=== PATIENT | female | born 1990 | race Caucasian/White ===

== ENCOUNTER 2019-01-26 05:19 | Inpatient (IN) | payer MEDICAID ==
[~2019-01-26] VITALS: Ht 162.6 cm; Wt 89.7 kg
[2019-01-26 05:30] VITALS: Ht 162.6 cm; Wt 89.7 kg
[2019-01-26] MEDS ORDERED: PREN-99 PO (05:32)
[2019-01-26 05:41] VITALS: BP 103/61; PULSE 76; RESP 18
[2019-01-26] MEDS ORDERED: OXYTOCIN 30 UNITS/LR 500 ML IV PRN ×2 (06:00→09:00)
[2019-01-26] MEDS ORDERED: METHYLERGONOVINE 0.2 MG INJ IM PRN ×2 (06:00→09:00)
[2019-01-26] MEDS ORDERED: CEFAZOLIN 2 GM/50 ML (PMX) 50 ML IVPB SCH (06:00)
[2019-01-26] MEDS ORDERED: CARBOPROST 250 MCG INJ IM PRN ×2 (06:00→09:00)
[2019-01-26] MEDS ORDERED: MISOPROSTOL 200 MCG TAB PR PRN ×2 (06:00→09:00)
[2019-01-26] MEDS ORDERED: OXYTOCIN 30 UNITS/LR 500 ML IV SCH ×2 (06:00→08:50)
[2019-01-26] MEDS: LACTATED RINGER'S 1,000 ML IV SCH ×3 (06:03→23:09)
--- NOTE | 2019-01-26 07:18 | PREAC ---
Date/Time of Note Date/Time of Note DATE: 01/26/19 TIME: 07:17 Anesthesia Eval and Record Evaluation Time Pre-Procedure Interview DATE: 01/26/19 TIME: 07:17 Age 29 Sex female NPO: 8 hrs Preoperative diagnosis iup at 39 weeks Planned procedure repeat c section Past Medical History Past Medical History: Includes GI: Obesity Heme: Anemia Surgery & Anesthesia Issues No known issue Meds Anticoagulation: No Beta Erika within 24 hr: No Reason Beta Erika not given: Pt. not on B-Erika Reported Medications Vit #76/Iron,Carb/FA (Pnv 29-1 Tablet) 1 Each Tablet, 1 EACH PO, TAB 01/26/19 Current Medications Lactated Ringer's 1,000 ml @ 125 mls/hr Q8H IV Last administered on 01/26/19at 06:03; Admin Dose 125 MLS/HR; Start 01/26/19 at 05:33 Cefazolin Sodium/ Dextrose 50 ml @ 100 mls/hr ONCE IVPB ; Start 01/26/19 at 06:00 Oxytocin/Lactated Ringer's 500 ml @ 125 mls/hr POST IV ; Start 01/26/19 at 06:00 Oxytocin/Lactated Ringer's 500 ml @ 0 mls/hr ONCE PRN IV .VAGINAL BLEEDING; Start 01/26/19 at 06:00 Methylergonovine Maleate (Methergine) 0.2 mg ONCE PRN IM .VAGINAL BLEEDING; Start 01/26/19 at 06:00 Carboprost Tromethamine (Hemabate) 250 mcg ONCE PRN IM .VAGINAL BLEEDING; Start 01/26/19 at 06:00 Misoprostol (Cytotec) 1,000 mcg ONCE PRN ID .VAGINAL BLEEDING; Start 01/26/19 at 06:00 Meds reviewed: Yes Allergies Coded Allergies: No Known Allergy (Unverified , 01/26/19) Allergies Reviewed: Yes Labs/Studies Labs Reviewed: Reviewed by anesthesiologist Result Diagram: 01/26/19 0550 Laboratory Tests 01/26/19 05:50 Blood Bank Test 01/26/19 05:50 Blood Product Summary Counts Blood Type A POSITIVE Rh Immune Globulin Candidate NO test: Positive Pre-procedure Exam Last vitals Vital Signs Date Temp Pulse Resp B/P (MAP) Pulse Ox O2 O2 Flow FiO2 Time Delivery Rate 7/10/19 98.4 76 18 103/61 Room Air 05:41 (75) Airway: Adequate mouth opening, Adequate thyromental dist Mallampati: Mallampati II Teeth: Normal Lung: Normal Heart: Normal ASA Physical Status ASA physical status: 2 Emergency: None Planned Anesthetic Neuraxial: Spinal Planned Pain Management Sub-arachniod narcotics, Parenteral pain med Pre-operative Attestations Prior to commencing anesthesia and surgery, the patient was re-evaluated, there was verification of: *The patient's identity *The results of appropriate recent lab work and preoperative vital signs *The above evaluation not changing prior to induction *Anesthetic plan, risk benefits, alternative and complications discussed with patient/family; questions answered; patient/family understands, accepts and wishes to proceed. CHANTAL SALAS Jan 26, 2019 07:18
--- NOTE | 2019-01-26 07:21 | PREOPHP ---
DATE OF ADMISSION: 01/26/2019 HISTORY OF PRESENT ILLNESS: Ms. Nia Lawson is a 28-year-old 4, para 3, EDC 019, intrauterine at 37 weeks and 1 day gestational age, was admitted today for elective re peat delivery. She was recommended by perinatologist and her primary OB physician, Dr. Baeza at, to be delivered at approximately 37 weeks gestational age secondary to history of uterine open wi ndow in her last and possibly with this . She denies any contractions, vaginal bl eeding, or discharge. Her care took place with Dr. Linares. PAST MEDICAL HISTORY: None. MEDICATIONS: vitamins. PAST SURGICAL HISTORY: Times 3 previous C-sections, x1 laparoscopic cholecystectomy. GYNECOLOGIC HISTORY: Twelve, regular, 3 to 4 days. Denies any sexually transmitted infections. Sex ually active with 1 partner. SOCIAL HISTORY: Denies any smoking, drugs or alcohol. FAMILY HISTORY: None. REVIEW OF SYSTEMS: All within normal except history of present illness. PHYSICAL EXAMINATION: HEENT: Within normal. LUNGS: CTA bilateral. CARDIOVASCULAR: S1, S2, regular rhythm. ABDOMEN: Gravid, nontender. Negative CVA bilateral. EXTREMITIES: Negative edema. No calf tenderness. PELVIC: Vaginal exam deferred. heart tracing category 1. ASSESSMENT: Intrauterine at 37 weeks and 1 day gestational age x3 previous , igor res elective repeat delivery. PLAN: Consent for repeat delivery. Risks, benefits and alternatives explained. All questi ons were answered. Dictated By: CARLIN LOCK/SAHIL Conf#: [id number] DID#: [id number]
[2019-01-26] MEDS ORDERED: FENTAnyl 50 MCG/ML VIAL ONE (07:31)
[2019-01-26] MEDS ORDERED: morphine SULFATE/PF (10 MG/10 ML) INJ ONE (07:31)
[2019-01-26] MEDS ORDERED: ONDANSETRON 4 MG INJ ONE (07:39)
[2019-01-26] MEDS ORDERED: DEXAMETHASONE 4 MG/ML 1 ML INJ ONE (07:39)
[2019-01-26] MEDS ORDERED: PHENYLephrine (100 MCG/ML) 10ML SYG ONE (08:10)
[2019-01-26] MEDS ORDERED: ZOLPIDEM 5 MG TAB PO PRN (08:30)
[2019-01-26] MEDS ORDERED: NALOXONE (0.4 MG/ML) INJ IV PRN (08:30)
[2019-01-26] MEDS ORDERED: HYDROmorphONE 0.5 MG/0.5 ML SYG IV PRN ×2 (08:30)
[2019-01-26] MEDS ORDERED: ONDANSETRON 4 MG INJ IV PRN (08:30)
[2019-01-26] MEDS ORDERED: DIPHENHYDRAMINE 50 MG INJ IV PRN (08:30)
--- NOTE | 2019-01-26 08:50 | OPPN ---
Date/Time of Note Date/Time of Note DATE: 01/26/19 TIME: 08:47 Operative Report Planned Procedure Procedure date Jan 26, 2019 Procedure(s) repeat low transverse CD Performed by see signature line Repair Coil Winder: LION [employer] 2nd Repair Coil Winder none Pre-procedure diagnosis iup at 37 wks ga, previous CD X 3, with suspected uterine window [id number] Anesthesia Type: Srdxx5w spinal Post-Procedure Post-procedure diagnosis same Findings a viable male, 9/9, weight 7lb 10 oz. positive 6 cm window uterine lower anterior, normal tubes and ovaries Estimated Blood Loss: 500 - 600 mls (500) Specimen(s) none Grafts/Implant(s) none Complication(s) none CARLIN BECK MD Jan 26, 2019 08:50
[2019-01-26] MEDS ORDERED: NACL 0.9% 3 ML SYG IV SCH (09:00)
[2019-01-26] MEDS ORDERED: OXYCODONE/ACETAMINOPHEN (5/325) TAB PO PRN ×2 (09:00)
[2019-01-26] MEDS: KETOROLAC 30 MG INJ IV PRN (10:53)
[2019-01-26 12:45] VITALS: BP 120/60; PULSE 67; RESP 18
[2019-01-26 13:00] VITALS: BP 116/72; PULSE 71; RESP 18
[2019-01-26] MEDS: LANOLIN HPA 1 PKT TOP PRN (13:13)
[2019-01-26 14:00] VITALS: BP 115/71; PULSE 79; RESP 18
[2019-01-26] MEDS: IBUPROFEN 800 MG TAB PO SCH ×2 (14:00→22:00)
--- NOTE | 2019-01-26 14:57 | OPR ---
DATE OF OPERATION: 01/26/2019 PREOPERATIVE DIAGNOSES: Intrauterine at 37 weeks gestational age, previous x3, s uspected uterine open window, desires elective repeat delivery. Declined vaginal afte r . POSTOPERATIVE DIAGNOSES: Intrauterine at 37 weeks gestational age, previous x3, suspected uterine open window, desires elective repeat delivery. Declined vaginal aft er . OPERATION PERFORMED: Repeat low transverse delivery. SURGEON: Moose Landaverde MD BUSINESS MANAGEMENT MANAGER: Cruz Ching MD ANESTHESIA: Spinal. COMPLICATIONS: None. ESTIMATED BLOOD LOSS: 500 mL. FINDINGS: A viable male, 9 and 9 respectively at 1 and 5 minutes, weight 7 pounds 10 ounces. A 6 cm open a window at the lower uterine segment of the uterus, normal tubes and ovaries. DESCRIPTION OF PROCEDURE: After explaining risks, benefits and alternatives, the patient and consent signed in chart, the patient was taken to the operating room where spinal anesthesia was found to be adequate. She was then prepared and draped in normal sterile fashion in dorsal supine position with a leftward tilt. Pfannenstiel skin incision was then made with a scalpel and carried to the underly ing fascia. The fascia was incised in midline and incision was extended laterally with Gamino scissors . The superior aspect of the fascial incision was grasped with curved clamps, elevated and the under lying rectus muscles dissected off bluntly. Attention was then turned to the inferior aspect incisio n which in similar fashion was grasped, tented up with curved clamps and the rectus muscles dissected off bluntly. The rectus muscle was in midline, peritoneum identified, tented up, and go ply with Metzenbaum scissors. The peritoneal incision was extended superiorly with good visualizatio n of the bladder. The bladder blade was then inserted and the lower uterine segment incised in trans verse fashion with a scalpel. The uterine incision was extended laterally. The bladder blade was re moved and the infant's head delivered atraumatically. The nose and mouth were suctioned and the cord was clamped and cut. The was handed off to awaiting bdr. The placenta was then rem abdi. The uterus was exteriorized and cleared of all clots and debris. The uterine incision was rep aired with 1-0 chromic in a running locked fashion. A second layer of same suture was used for imbri cation obtaining excellent hemostasis. The uterus was returned to the abdomen. The gutters were norbert ared of all clots. Interceed was applied to the anterior uterus. The peritoneum and rectus abdomini s muscles reapproximated with 2-0 Vicryl in an interrupted fashion. The fascia was reapproximated wi th 0 Vicryl in a running fashion. The subcutaneous tissue was reapproximated with 2-0 plain gut in a running fashion. The skin was closed with absorbable nessa. The patient tolerated procedure well . Sponge, lap, needle counts correct. The patient was taken to recovery room in stable condition. Dictated By: MOOSE LOCK/SAHIL Conf#: [id number] DID#: [id number]
[2019-01-26 15:03] VITALS: BP 114/70; PULSE 60; RESP 18
[2019-01-26] MEDS: CEFAZOLIN 2 GM/50 ML (PMX) 50 ML IVPB SCH ×2 (16:15→23:35)
--- NOTE | 2019-01-26 19:09 | PAC ---
Date/Time of Note Date/Time of Note DATE: 01/26/19 TIME: 19:09 Post-Anesthesia Notes Post-Anesthesia Note Last documented vital signs Vital Signs Date Temp Pulse Resp B/P (MAP) Pulse Ox O2 O2 Flow FiO2 Time Delivery Rate 01/26/19 98.5 60 18 114/70 99 1700 (85) 01/26/19 Room Air 14:00 Activity: WNL Respiratory function: WNL Cardiovascular function: WNL Mental status: Baseline Pain reasonably controlled: Yes Hydration appropriate: Yes Nausea/Vomiting absent: Yes CHANTAL SALAS Jan 26, 2019 19:09
[2019-01-26 20:00] VITALS: BP 101/62; PULSE 66; RESP 20
[2019-01-27] VITALS: BP 104/71; PULSE 64; RESP 16
[2019-01-27 04:00] VITALS: BP 105/60; PULSE 60; RESP 18
[2019-01-27] MEDS: IBUPROFEN 800 MG TAB PO SCH ×3 (06:00→20:44)
[2019-01-27] MEDS: LACTATED RINGER'S 1,000 ML IV SCH ×2 (06:00→14:00)
[2019-01-27] MEDS: CEFAZOLIN 2 GM/50 ML (PMX) 50 ML IVPB SCH (06:06)
[2019-01-27] MEDS: KETOROLAC 30 MG INJ IV PRN ×2 (06:07→06:56)
[2019-01-27 08:00] VITALS: BP 85/50; PULSE 66; RESP 18
--- NOTE | 2019-01-27 12:37 | QN ---
Documentation Comment progress note pod 1 patient seen and evaluated no compliants no n/v, sob, visual changes, epigastric pain, palpitation vs stable afebrile ab dressing clean/dry no distention extremity no edema no calf tenderness a/ sp cd pod 1 stable afebrile p/ iron supplement repeat cbc tomorrow CARLIN BECK MD Jan 27, 2019 12:37
[2019-01-27 16:03] VITALS: BP 102/58; PULSE 77; RESP 16
[2019-01-27 20:30] VITALS: BP 107/54; PULSE 77; RESP 16
[2019-01-27] MEDS: LANOLIN HPA 1 PKT TOP PRN (20:41)
[2019-01-27] MEDS: FERROUS SULFATE (EC) 325 MG TAB PO SCH (20:42)
[2019-01-28 04:35] VITALS: BP 106/60; PULSE 72; RESP 19
[2019-01-28] MEDS: IBUPROFEN 800 MG TAB PO SCH ×3 (06:01→22:00)
[2019-01-28 08:00] VITALS: BP 115/74; PULSE 76; RESP 18
[2019-01-28] MEDS: FERROUS SULFATE (EC) 325 MG TAB PO SCH ×2 (09:49→21:26)
--- NOTE | 2019-01-28 11:50 | QN ---
Documentation Comment POD#2 is stable afebrile No VB +Flatus Adequate urine VS stable Gen NAD Abd soft NT ND Incision intact Genitalia No blood at perineum --->Ambulation --->Discharge plan for tomorrow UMER HAGER M.D. Jan 28, 2019 11:50
[2019-01-28 16:00] VITALS: BP 102/76; PULSE 73; RESP 16
[2019-01-28 19:30] VITALS: BP 115/74; PULSE 66; RESP 18
[2019-01-28] MEDS: LANOLIN HPA 1 PKT TOP PRN (21:26)
[2019-01-29 04:38] VITALS: BP 113/78; PULSE 70; RESP 18
[2019-01-29] MEDS: IBUPROFEN 800 MG TAB PO SCH ×2 (06:08→13:36)
[2019-01-29 08:00] VITALS: BP 113/67; PULSE 70; RESP 18
[2019-01-29] MEDS: FERROUS SULFATE (EC) 325 MG TAB PO SCH (08:43)
--- NOTE | 2019-01-29 12:06 | DS ---
Date/Time of Note Date/Time of Note DATE: 01/29/19 TIME: 12:04 Obstetrical Discharge Record Final Diagnosis Final Diagnosis: Term delivered Section Section: Repeat Complications Augmentation: No Induction: No Rupture of Membranes: No Condition on Discharge Physical Assessment Last Vitals: T=98.4 BP 113/67 Voiding: Yes Bowel Movement: Yes Breast: Filling Fundus: Firm Abdomen and Incision: C/D/I. Abdomen soft. Uterus firm. Calf Tenderness: No Patient Condition: Good DEANGELO FIELDS MD Jan 29, 2019 12:06
[2019-01-29] MEDS ORDERED: IBUP800T48 PO (12:07)
--- NOTE | 2019-01-29 12:07 | PD.PPDC ---
FILL TECHNICIAN Discharge Instruction Condition [id number] Patient Condition: Typfm5a Good Diet Difch8Cb Diet: Wdcfw4r Resume Regular Diet Activity/Restrictions Qlgkw6If Activity: Kggzw2x Bedrest May be up to bathroom May be up for meals May Shower Yusyf2Hz Restrictions: Bvxko5e No Exercising No Lifting No Driving Minimize Walking Minimize Stair-climbing No Sexual Activity Nothing in the Vagina No Lena No Tampons, douche Wound/Drain Care Instructions [id number] Wound/Drain Care Ybfvx6y Remove Steri Strips in 2 Instructions: weeks Keep clean and dry Follow-up Follow-up with Physician: 2, Week/Weeks Return to clinic for [id number] TOWN ADMINISTRATOR Instructions: Ebrxx0x Fever greater than 101 Chills Worsening abdominal pain Excessive Vaginal Bleeding [id number] OB Instructions: Gwses0a Breast Tenderness Depression Adkwi0An Surgical Instructions: Fqjau1r Incisional Drainage Incisional Redness DEANGELO FIELDS MD Jan 29, 2019 12:07
[2019-01-29] MEDS ORDERED: MEASLES,MUMPS,RUBELLA VACCINE INJ SC* ONE (12:30)
--- NOTE | 2019-01-30 15:23 | DELSUM ---
Delivery Summary A-C Datetime Report Generated by CPN: 01/30/2019 15:22 DELIVERY PERSONNEL Pt Escort: Octavio, Fany MATERNAL INFORMATION Delivery Anesthesia: Spinal Medications in Delivery: SEE ANESTHESIA RECORD Delivery QBL (ml): 500 Placenta Cultured: No Maternal Complications: None Other Maternal Complications: 37.1 Weeks (hx of window on previous c/s) LABOR SUMMARY EDC: 02/15/2019 00:00 No. Babies in Womb: 1 Attempted: No Labor Anesthesia: None LABOR INFORMATION Reason for Induction: Not Applicable Group B Beta Strep: Positive Antibiotics # of Doses: ANCEF 2G X1 Antibiotics Time of Last Dose: 01/26/2019 08:00 Steroids Given: None Reason Steroids Not Administered: Not Applicable MEMBRANES Membranes Rupture Method: Artificial Rupture of Membranes: 01/26/2019 08:20 Length of Rupture (hr): 0.00 Amniotic Fluid Color: Clear Amniotic Fluid Amount: Moderate Amniotic Fluid Odor: None STAGES OF LABOR Stage 3 hr: 0 Stage 3 min: 2 CSECTION DELIVERY Primary Indication: Repeat Elective Secondary Indication: N/A CSection Urgency: Elective CSection Incidence: Repeat Labor: No Labor Elective: Elective CSection Incision: Lower Uterine Transverse BABY A INFORMATION Infant Delivery Date/Time: 01/26/2019 08:20 Method of Delivery: Born in Route : No : N/A Forceps: N/A Vacuum Extraction: N/A Shoulder Dystocia : N/A SHOULDER DYSTOCIA BABY A Infant Delivery Date/Time: 01/26/2019 08:20 PRESENTATION/POSITION BABY A Presentation: Cephalic Cephalic Presentation: Vertex Vertex Position: Left Occipital Posterior Breech Presentation: N/A PLACENTA INFORMATION BABY A Placenta Delivery Time : 01/26/2019 08:22 Placenta Method of Delivery: Manual Removal Placenta Status: Delivered SCORES BABY A Heart Rate 1 min: >100 bpm Resp Effort 1 min: Good Cry Reflex Irritability 1 min: Cough/Sneeze/Pulls Away Muscle Tone 1 min: Active Motion Color 1 min: Body [place], Extremit Blue Resuscitation Effort 1 min: Tactile Stimulation SCORE 1 MIN: 9 Heart Rate 5 min: >100 bpm Resp Effort 5 min: Good Cry Reflex Irritability 5 min: Cough/Sneeze/Pulls Away Muscle Tone 5 min: Active Motion Color 5 min: Body [place], Extremit Blue Resuscitation Effort 5 min: Tactile Stimulation SCORE 5 MIN: 9 INFANT INFORMATION BABY A Gestational Age at Delivery: 37.1 Gestational Status: Early Term- 37- 38.6 Weeks Outcome : Liveborn, with signs of life Condition : Stable Infant Sex: Male IDENTIFICATION/MEDS BABY A ID Band Number: [id number] ID Band Location: Right Leg; Left Arm Sensor Applied: Yes Sensor Number: [id number] Sensor Location : Cord Clamp Vitamin K Given : Not Given Erythromycin Given: Not Given WEIGHT/LENGTH BABY A Birthweight (gm): 3460 Infant Weight (lb): 7 Weight (oz): 10 Infant Length (in): 19.50 Length (cm): 49.53 CORD INFORMATION BABY A No. Cord Vessels: 3 Nuchal Cord : N/A Cord Blood Taken: Yes Banking/Donate Info: N/A Infant Suction: Mouth; Nose ASSESSMENT BABY A Infant Complications: None Physical Findings at Delivery: Within Normal Limits Respirations: Appears Normal Vice Principal/ALS Called : No Infant Care By: Lynette Schulte RN/Ketan RT Transferred To: Remains with Mother
== END 2019-01-29 14:30 | disposition home or self-care (01) | DRG 788 ==
LOC: L-D 05:19 → PP1 12:17
PROVIDERS: ADMIT Obstetrics & Gynecology; ATTEND Obstetrics & Gynecology
PROC: 10D00Z1 Extraction of Products of Conception, Low, Open Approach (ICD-10-PCS; principal; 2019-01-26 07:30)
DX: O34.593 Maternal care for other abnormalities of gravid uterus, third trimester (principal); O34.211 Maternal care for low transverse scar from previous cesarean delivery; O94 Sequelae of complication of pregnancy, childbirth, and the puerperium; Z3A.37 37 weeks gestation of pregnancy; Z37.0 Single live birth
CPT/HCPCS: 80307; 85025; 85610; 85730; 86592; 86850; 86900; 86901; 86920; 87340; 99464; J0690; J1100; J1885; J2210; J2274; J2370; J2405; J2590; J3010; J7120